=== PATIENT | female | born 1970 | race American Indian/Alaskan Native ===

== ENCOUNTER 2017-01-02 13:22 | Emergency (ER) | payer OTHER ==
[2017-01-02 13:23] VITALS: BMI 23.7
[2017-01-02 13:28] VITALS: TEMP 98.2; O2SAT 98
--- NOTE | 2017-01-02 14:15 | C.PDOC ---
History Of Present Illness 46 y/o female presents to the ED with complains of left lower back pain which onset 4-5 days ago. Pain radiates down left leg. History of spinal surgery 2015, patient felt well until 5 days ago. Denies trauma, weakness, numbness, urinary or bowel incontinence, abdominal pain or any other complaints. Time Seen by Provider: 01/02/17 13:33 Chief Complaint (Nursing): Lower Extremity Problem/Injury History Per: Patient History/Exam Limitations: no limitations Onset/Duration Of Symptoms: Days Current Symptoms Are (Timing): Still Present Severity: Moderate Recent travel outside of the [place]: No Past Medical History Reviewed: Historical Data, Nursing Documentation, Vital Signs Vital Signs: Last Vital Signs Temp 98.2 F 01/02/17 13:26 Pulse 85 01/02/17 15:33 Resp 18 01/02/17 15:33 BP 136/79 01/02/17 15:33 Pulse Ox 98 01/02/17 15:33 - Medical History PMH: Arthritis, Depression Denies: Chronic Kidney Disease Surgical History: Back Surgery Family History: States: Unknown Family Hx - Social History Hx Tobacco Use: No Hx Alcohol Use: No Hx Substance Use: No - Immunization History Hx Tetanus Toxoid Vaccination: No Hx Influenza Vaccination: No Hx Pneumococcal Vaccination: No Review Of Systems Constitutional: Negative for: Fever, Chills Gastrointestinal: Negative for: Abdominal Pain Genitourinary: Negative for: Incontinence Musculoskeletal: Positive for: Back Pain (radiates down left leg) Neurological: Negative for: Weakness, Numbness Physical Exam - Physical Exam Appears: Non-toxic, No Acute Distress Skin: Warm, Dry, No Rash Head: Atraumatic, Normacephalic Cardiovascular: Rhythm Regular Respiratory: Normal Breath Sounds, No Rales, No Rhonchi, No Wheezing Gastrointestinal/Abdominal: Normal Exam, Soft, No Tenderness Back: No Vertebral Tenderness, Paraspinal Tenderness (left lumbar) Extremity: Normal ROM, No Tenderness Extremity: Bilateral: Atraumatic Neurological/Psych: Oriented x3, Normal Speech, Normal Motor, Normal Sensation ED Course And Treatment O2 Sat by Pulse Oximetry: 98 (room air) Pulse Ox Interpretation: Normal Progress Note: Plan: decadron, toradol, lidoderm patch. On re-exam, the patient reports improvement of symptoms. Lungs are CTA, heart is RRR, abdomen is soft, non-tender and patient is tolerating PO well. Ambulatory in the ED with steady. Follow up with the medical doctor within 1-2 days. Return if worsened. Disposition - Disposition Referrals: Deandre Oliveros MD [Staff Provider] - Disposition: HOME/ ROUTINE Disposition Time: 15:27 Condition: GOOD Additional Instructions: Follow up with the medical doctor within 1-2 days. Return if worsened. 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 - Scribe Statement The provider has reviewed the documentation as recorded by the Scribe Jay Baez All medical record entries made by the Scribe were at my direction and personally dictated by me. I have reviewed the chart and agree that the record accurately reflects my personal performance of the history, physical exam, medical decision making, and the department course for this patient. I have also personally directed, reviewed, and agree with the discharge instructions and disposition.
[2017-01-02] MEDS ORDERED: Lidocaine 5% Patch TD ONE (14:18)
[2017-01-02] MEDS ORDERED: Dexamethasone 4 mg/1 ml ONE (14:24)
[2017-01-02] MEDS: Dexamethasone 4 mg/1 ml IM STA (14:27)
[2017-01-02] MEDS: Lidocaine 5% Patch TD STA (14:28)
[2017-01-02 15:33] VITALS: BP 136/79; PULSE 85; RESP 18
== END 2017-01-02 15:36 | disposition home or self-care (01) ==
LOC: C.ER 13:22
DX: M54.16 Radiculopathy, lumbar region (principal)
CPT/HCPCS: 96372; 99284; J1100; J1885

== ENCOUNTER 2018-05-20 09:16 | Emergency (ER) | payer OTHER ==
[2018-05-20 09:16] VITALS: BMI 23.7
[2018-05-20 09:22] VITALS: BP 146/93; PULSE 96; RESP 18; TEMP 98; O2SAT 100
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
== END 2018-05-20 10:54 | disposition home or self-care (01) ==
LOC: C.ER 09:16
DX: T14.8XXA Other injury of unspecified body region, initial encounter (principal); V43.53XA Car driver injured in collision with pick-up truck in traffic accident, initial encounter; Y92.410 Unspecified street and highway as the place of occurrence of the external cause